=== PATIENT | male | born 1965 | race Caucasian/White ===

== ENCOUNTER 2019-03-06 12:47 | Emergency (ER) | payer MEDICARE ==
[~2019-03-06] VITALS: Ht 180.3 cm; Wt 70.0 kg
[2019-03-06 12:57] VITALS: BP 159/103
== END 2019-03-06 14:44 | disposition home or self-care (01) ==
LOC: ER 12:48
DX: G89.29 Other chronic pain (principal); M75.102 Unspecified rotator cuff tear or rupture of left shoulder, not specified as traumatic; M79.662 Pain in left lower leg; Z98.890 Other specified postprocedural states
CPT/HCPCS: 99281

== ENCOUNTER 2019-03-08 15:15 | Emergency (ER) | payer MEDICARE ==
[~2019-03-08] VITALS: Ht 172.7 cm; Wt 80.0 kg
--- NOTE | 2019-03-08 18:20 | NUR ---
Discussed pt's c/o pain with EDMD [facility]; new order for Toradol recieved. Pt presents as moderately agitated AEB his responses to basic assessment questions and voicing of frustration that he has had to wait 3 hrs to be seen. Explained ER dynamics which only agitated pt further.
[2019-03-08] MEDS ORDERED: mag hydrox/Alum hydrox/simeth 30ml oral suspension PO ONE (18:30)
[2019-03-08] MEDS ORDERED: LIDOcaine Viscous 15ml cup MM ONE (18:30)
[2019-03-08] MEDS ORDERED: ketorolac trometh inj. 60 MG/2 ML VIAL IM ONE (19:00)
[2019-03-08 19:08] LABS: EOSINOPHILS # (AUTO) 0.2 X10'3 (0-0.9); HEMOGLOBIN 13.2 g/dl (14.0-17.9); MEAN CORPUSCULAR HEMOGLOBIN 28.9 PG (27.0-31.0); MEAN PLATELET VOLUME 6.8 FL (7.4-10.4); RED BLOOD COUNT 4.56 X10'6 (4.70-6.10); WHITE BLOOD COUNT 8.2 X10'3 (4.5-11.0)
[2019-03-08 19:10] LABS: BASOPHILS # (AUTO) 0.1 X10'3 (0-0.2); BASOPHILS % (AUTO) 1.2 % (0-1); EOSINOPHILS % (AUTO) 2.4 % (0-6); HEMATOCRIT 38.9 % (42.0-52.0); LYMPHOCYTES % (AUTO) 24.2 % (21-51); MEAN CORPUSCULAR HGB CONC 33.8 g/dL (33.0-36.5); MEAN CORPUSCULAR VOLUME 85.3 FL (78-98); MONOCYTES # (AUTO) 0.7 X10'3 (0-0.9); MONOCYTES % (AUTO) 8.9 % (2-12); NEUTROPHILS # (AUTO) 5.2 X10'3 (1.8-7.7); NEUTROPHILS % (AUTO) 63.3 % (42-75); PLATELET COUNT 390 X10'3 (140-440); RED CELL DISTRIBUTION WIDTH 16.4 % (11.5-14.5)
[2019-03-08 19:23] LABS: ALANINE AMINOTRANSFERASE 27 U/L (12-78); ALBUMIN/GLOBULIN RATIO 1.1 (1.1-1.5); ALKALINE PHOSPHATASE 79 IU/L (46-116); ANION GAP 8 (8-16); ASPARTATE AMINO TRANSFERASE 23 U/L (10-37); BILIRUBIN,TOTAL 0.4 MG/DL (0.1-1.0); BLOOD UREA NITROGEN 9 MG/DL (7-18); BUN/CREATININE RATIO 10.5 (5.4-32.0); CHLORIDE 106 MMOL/L (99-107); CREATININE 0.86 MG/DL (0.60-1.10); GLUCOSE 84 MG/DL (70-104); POTASSIUM 3.9 MMOL/L (3.5-5.1); SODIUM 142 MMOL/L (135-145); TOTAL CARBON DIOXIDE 28.5 MMOL/L (24-32); TOTAL PROTEIN 7.6 G/DL (6.4-8.2); eGFR > 90 ML/MIN
[2019-03-08] MEDS ORDERED: TRAM50TA2 PO (19:35)
[2019-03-08] MEDS ORDERED: DOXY100C43 PO (19:35)
[2019-03-08 19:57] VITALS: BP 139/92
== END 2019-03-08 19:59 | disposition home or self-care (01) ==
LOC: ER 15:18
DX: L03.116 Cellulitis of left lower limb (principal); M25.572 Pain in left ankle and joints of left foot; G89.29 Other chronic pain; Z98.890 Other specified postprocedural states; Z88.8 Allergy status to other drugs, medicaments and biological substances; Z79.899 Other long term (current) drug therapy
CPT/HCPCS: 80053; 84145; 85025; 96372; 99284; J1885